=== PATIENT | female | born 1955 | race African-American/Black ===

== ENCOUNTER 2016-12-10 22:28 | Emergency (ER) | payer BC ==
--- NOTE | ~2016-12-10 | CR72 ---
[facility] A Service of [facility] RADIOLOGY TEXT RESULTS PATIENT: ABRAHAM ZAMAN LOCATION: [facility] : 57 UNIT #: [id number] AGE: [address]: Dolores Campuzano MD SEX: F ORDER DR: [id number] [facility] [address] [place], [place] [address] [id number] E MR#: [id number] Acc #: [id number] NAME: ABRAHAM ZAMAN : 1955 SEX: F STUDY DATE/TIME: 12/10/2016 22:18 UNIT: [facility] ROOM: STUDY DESCRIPTION: CR Chest Single View Portable Attending Physician: Dolores Campuzano M.D. Ordering Physician: Dolores Campuzano M.D. MEDICAL IMAGING REPORT This report is preliminary unless electronic signature is present EXAM Chest x-ray 12/10/2016 HISTORY 61-year-old female in the ED complaining of 1-week history of cough, congestion, shortness of air and chest pressure. TECHNIQUE AP portable upright chest x-ray. FINDINGS The exam shows no active disease in the chest. Heart size and pulmonary vascularity are within normal limits. No visible pulmonary infiltrate or pleural effusion. IMPRESSION No active disease. Dictated by... Perfecto Platt M.D. THIS IS AN ELECTRONICALLY VERIFIED REPORT Perfecto Platt M.D. at 12/11/2016 5:58 AM GEORGE/brian TD: 12/10/2016 23:42 JOB #: [id number] MEDICAL IMAGING REPORT Page 1 of 1 COPY
--- NOTE | ~2016-12-10 | EKG ---
PATIENT: ABRAHAM ZAMAN UNIT #: [id number] Ventricular Rate: 56 BPM Atrial Rate: 56 BPM P-R Interval: 170 ms QRS Duration: 78 ms Q-T Interval: 456 ms QTC Calculation(Bezet): 440 ms P [place]: 44 degrees Calculated R [place]: 16 degrees Calculated T [place]: 25 degrees Diagnosis Line: Sinus bradycardia Diagnosis Line: Nonspecific ST and T wave abnormality Diagnosis Line: Abnormal ECG Diagnosis Line: No previous ECGs available Diagnosis Line: Confirmed by JOHNNY ONTIVEROS MD ([id number]) on Diagnosis Line: 12/12/2016 10:56:18 PM INTERPRETING MD: GIGI
[2016-12-10 23:02] LABS: URINE SOURCE CLEAN CATCH
[2016-12-10 23:02] LABS: BASOPHIL% 0.3 % (0-2.5); DIFF IND YES; EOSINOPHIL# 0.1 X10e3 (0-0.7); EOSINOPHIL% 1.7 % (0.0-7.0); HEMATOCRIT 38.1 % (35.0-45.0); HEMOGLOBIN 12.5 gm/dL (12.0-16.0); LYMPHOCYTE# 3.2 X10e3 (1.0-3.5); LYMPHOCYTE% 63.6 % (17.0-45.0); MEAN CELL VOLUME 82.1 FL (83-96); MEAN CORPUSCULAR HGB CONC 32.9 g/dL (30-36); MONOCYTE# 0.6 X10e3 (0-1.0); MONOCYTE% 11.3 % (3.0-12.0); NEUTROPHIL# 1.2 X10e3 (1.5-7.1); NEUTROPHIL% 23.1 % (40-75); PLATELET COUNT 192 X10e3 (140-420); RED BLOOD COUNT 4.64 X10e (3.90-5.30); RED CELL DISTRIBUTION WIDTH 13.1 % (11.0-15.5)
[2016-12-10 23:07] LABS: URINE BLOOD NEG (NEG); URINE COLOR DK YELLOW; URINE GLUCOSE NEG (NEG); URINE KETONE TRACE (NEG); URINE LEUKOCYTE ESTERASE NEG (NEG); URINE NITRATE NEG (NEG); URINE PROTEIN TRACE (NEG); URINE SPECIFIC GRAVITY 1.042 (1.003-1.035)
[2016-12-10 23:09] LABS: INFLUENZA A NEG (NEG); INFLUENZA B NEG (NEG)
[2016-12-10 23:16] LABS: CULTURE INDICATED? NO; URINE BILIRUBIN NEG (NEG)
[2016-12-10 23:25] LABS: ALBUMIN SERUM 3.8 g/dL (3.5-5.0); BILIRUBIN, DIRECT 0.1 mg/dL (0.0-0.2); BILIRUBIN,INDIRECT 0.9 mg/dL (0.0-0.9); BUN/CREATININE RATIO 17.5; CALCIUM SERUM 8.9 mg/dL (8.4-10.2); CREATININE SERUM 0.8 mg/dL (0.6-1.4); PLATELET ESTIMATE DECREASED (NORMAL); POTASSIUM 3.2 mmol/L (3.5-5.1); PROTEIN TOTAL SERUM 6.9 g/dL (6.0-8.3); RBC NORMAL YES; SMUDGE CELLS 2 /100
[2016-12-10 23:27] LABS: POC - TROPONIN <0.05 ng/mL (<=0.05)
[2016-12-11 00:46] LABS: POC - CKMB <1.0 ng/mL (0.0-7.9); POC - TROPONIN <0.05 ng/mL (<=0.05)
== END 2016-12-11 02:30 | disposition home or self-care (01) ==
LOC: CED 22:28
PROVIDERS: Emergency Medicine
DX: R63.0 Anorexia (principal); R19.7 Diarrhea, unspecified; R09.89 Other specified symptoms and signs involving the circulatory and respiratory systems; R53.1 Weakness; Z88.0 Allergy status to penicillin; Z90.710 Acquired absence of both cervix and uterus
CPT/HCPCS: 71010; 80048; 80076; 81003; 82553; 83880; 84484; 85025; 85379; 87804; 93005; 96360; 96361; 99284